=== PATIENT | female | born 1935 | race Caucasian/White ===

== ENCOUNTER 2018-09-29 15:19 | Inpatient (IN) | payer MEDICARE, OTHER ==
[~2018-09-29] VITALS: Ht 157.5 cm; Wt 53.6 kg
[2018-09-29] MEDS ORDERED: ASPIRIN 81 MG TABLET CHEW PO ONE (16:00)
[2018-09-29] MEDS ORDERED: NITROGLYCERIN SINGLE TAB 0.4 MG SL PRN (16:00)
[2018-09-29] MEDS ORDERED: NITROGLYCERIN SINGLE TAB 0.4 MG SL ONE (16:02)
[2018-09-29 16:04] LABS: BASOPHILS # (AUTO) 0.08 x10^3/uL (0-0.1); BASOPHILS % (AUTO) 1 % (0-1); EOSINOPHILS # (AUTO) 0.02 x10^3/uL (0-0.4); EOSINOPHILS % (AUTO) 0 % (1-7); LYMPHOCYTES # (AUTO) 0.96 x10^3/uL (1-3.4); LYMPHOCYTES % (AUTO) 7 % (22-44); MD NO; MEAN CORPUSCULAR HEMOGLOBIN 32.2 pg (27.0-34.8); MEAN CORPUSCULAR HGB CONC 33.7 g/dL (32.4-35.8); MEAN CORPUSCULAR VOLUME 95.7 fL (80-100); MONOCYTES # (AUTO) 0.96 x10^3/uL (0.2-0.8); MONOCYTES % (AUTO) 7 % (2-9); NEUTROPHILS # (AUTO) 12.05 x10^3/uL (1.8-6.8); NEUTROPHILS % (AUTO) 86 % (42-75); PLATELET COUNT 186 x10^3/uL (130-400); RED BLOOD COUNT 4.73 x10^6/uL (3.82-5.3); RED CELL DISTRIBUTION WIDTH 12.4 % (9.6-15.2)
[2018-09-29 16:15] LABS: ALANINE AMINOTRANSFERASE 30 U/L (12-78); ALBUMIN 4.5 g/dL (3.4-5.0); ANION GAP 9 mmol/L (5-15); CALCIUM 9.5 mg/dL (8.5-10.1); CHLORIDE 101 mmol/L (98-107)
[2018-09-29 16:20] LABS: ALKALINE PHOSPHATASE 57 U/L (45-117); BILIRUBIN,TOTAL 1.8 mg/dL (0.2-1.0); CREATININE 1.17 mg/dL (0.55-1.02); TOTAL PROTEIN 7.7 g/dL (6.4-8.2)
[2018-09-29] MEDS ORDERED: MORPHINE SULFATE 4 MG/ML, 1ML ONE (16:26)
[2018-09-29 16:27] LABS: INTERNATIONAL NORMALIZED RATIO 0.95 (0.93-1.1); PROTHROMBIN TIME 10.1 Seconds (9.6-11.5)
[2018-09-29] MEDS ORDERED: morphine SULFATE 10 MG/ML, 1ML IVPush ONE (16:30)
[2018-09-29] MEDS ORDERED: FENTANYL PF 100 MCG/2ML ONE (16:51)
[2018-09-29] MEDS ORDERED: MIDAZOLAM 1 MG/ML, 5ML ONE (16:51)
[2018-09-29] MEDS ORDERED: BIVALIRUDIN 250 MG ONE (16:52)
[2018-09-29] MEDS ORDERED: TICAGRELOR 90 MG TABLET ONE (16:52)
[2018-09-29] MEDS ORDERED: HEPARIN 1,000 UNITS/ML, 10ML ONE (16:52)
[2018-09-29] MEDS ORDERED: VERAPAMIL 2.5 MG/ML, 2ML ONE (16:52)
[2018-09-29] MEDS ORDERED: SODIUM CHLORIDE 0.9% 1,000 ML IV SCH (16:59)
[2018-09-29] MEDS ORDERED: ACETAMINOPHEN 325 MG TABLET PO PRN ×2 (17:00→22:30)
[2018-09-29] MEDS ORDERED: NITROGLYCERIN 0.4 MG/SPRAY SL PRN ×2 (17:00→22:30)
[2018-09-29] MEDS ORDERED: HEPARIN 5,000 UNITS/ML, 1ML IV ONE (17:00)
[2018-09-29] MEDS ORDERED: POLYETHYLENE GLYCOL 17 GM PACKET PO PRN ×2 (17:00→22:30)
[2018-09-29] MEDS ORDERED: DOCUSATE 100 MG CAPSULE PO PRN ×2 (17:00→22:30)
[2018-09-29] MEDS ORDERED: ONDANSETRON ODT 4 MG PO PRN ×2 (17:00→22:30)
[2018-09-29] MEDS ORDERED: HEPARIN 5,000 UNITS/ML, 1ML IV PRN (17:00)
[2018-09-29] MEDS ORDERED: NITROGLYCERIN 0.4 MG BOTTLE (25 TABS) SL PRN ×2 (17:00→22:30)
[2018-09-29] MEDS ORDERED: hydrALAzine 20 MG/ML, 1ML IVPush PRN ×2 (17:00→22:30)
[2018-09-29] MEDS ORDERED: HEPARIN 25,000 UNITS/500ML PMX 500 ML IV PRN (17:00)
[2018-09-29] MEDS ORDERED: ONDANSETRON 2MG/ML, 2ML IVPush PRN ×2 (17:00→22:30)
[2018-09-29] MEDS ORDERED: MORPHINE SULFATE 4 MG/ML, 1ML IVPush PRN ×2 (17:00→22:30)
[2018-09-29 19:20] VITALS: BP 105/69
[2018-09-29] MEDS ORDERED: METOPROLOL TARTRATE 25 MG TABLET ONE (20:31)
[2018-09-29] MEDS ORDERED: ATORVASTATIN 20 MG TABLET ONE (20:32)
[2018-09-29] MEDS ORDERED: METOPROLOL TARTRATE 25 MG TABLET PO SCH (21:00)
[2018-09-29] MEDS ORDERED: ATORVASTATIN 20 MG TABLET PO SCH (21:00)
[2018-09-29 21:38] VITALS: BP 98/62
[2018-09-30 00:08] VITALS: BP 103/61
[2018-09-30 05:11] LABS: MEAN CORPUSCULAR HEMOGLOBIN 32.9 pg (27.0-34.8); MEAN CORPUSCULAR HGB CONC 34.3 g/dL (32.4-35.8); MEAN CORPUSCULAR VOLUME 95.9 fL (80-100); MEAN PLATELET VOLUME 8.7 fL (7.4-10.4); PLATELET COUNT 132 x10^3/uL (130-400); RED BLOOD COUNT 3.73 x10^6/uL (3.82-5.3); RED CELL DISTRIBUTION WIDTH 12.5 % (9.6-15.2)
[2018-09-30] MEDS: ASPIRIN 81 MG TABLET EC PO SCH (05:27)
[2018-09-30 05:30] LABS: BASOPHILS # (AUTO) 0.02 x10^3/uL (0-0.1); BASOPHILS % (AUTO) 0 % (0-1); EOSINOPHILS # (AUTO) 0.04 x10^3/uL (0-0.4); EOSINOPHILS % (AUTO) 0 % (1-7); LYMPHOCYTES # (AUTO) 1.13 x10^3/uL (1-3.4); LYMPHOCYTES % (AUTO) 13 % (22-44); MD SCAN; MONOCYTES # (AUTO) 1.52 x10^3/uL (0.2-0.8); MONOCYTES % (AUTO) 18 % (2-9); NEUTROPHILS # (AUTO) 5.98 x10^3/uL (1.8-6.8); NEUTROPHILS % (AUTO) 69 % (42-75)
[2018-09-30 05:34] LABS: CHLORIDE 105 mmol/L (98-107)
[2018-09-30 05:53] LABS: ALANINE AMINOTRANSFERASE 18 U/L (12-78); ALKALINE PHOSPHATASE 37 U/L (45-117); ANION GAP 8 mmol/L (5-15); BILIRUBIN,TOTAL 2.2 mg/dL (0.2-1.0); CALCIUM 8.1 mg/dL (8.5-10.1); CHOLESTEROL, TOTAL 151 mg/dL (140-239); CREATININE 0.91 mg/dL (0.55-1.02); HDL CHOL % 50 % (28-40); HDL CHOLESTEROL (DIRECT) 76 mg/dL (40-60); LDL CHOLESTEROL,CALCULATED 63 mg/dL (54-169); LDL/HDL RATIO 0.8 (0.5-3.0); TOTAL PROTEIN 5.7 g/dL (6.4-8.2); TRIGLYCERIDES 59 mg/dL (50-200); VLDL CHOLESTEROL 12 mg/dL (0-25)
[2018-09-30] MEDS ORDERED: ASPIRIN 81 MG TABLET EC PO SCH (06:00)
[2018-09-30 07:15] VITALS: BP 90/54
[2018-09-30] MEDS ORDERED: METOPROLOL TARTRATE 25 MG TABLET PO SCH (09:00)
[2018-09-30] MEDS: CLOPIDOGREL 75 MG TABLET PO SCH (10:21)
[2018-09-30 10:25] VITALS: BP 129/71
[2018-09-30] MEDS: METOPROLOL SUCCINATE 25 MG TAB.ER.24H PO SCH (10:26)
[2018-09-30] MEDS ORDERED: ENOXAPARIN 40 MG/0.4 ML SQ SCH (12:30)
[2018-09-30 14:28] VITALS: BP 106/67
[2018-09-30] MEDS ORDERED: SODIUM CHLORIDE 0.9% 1,000 ML IV SCH (16:59)
[2018-09-30 18:31] VITALS: BP 111/68
[2018-09-30] MEDS ORDERED: ATORVASTATIN 20 MG TABLET PO SCH (21:00)
[2018-10-01 00:23] VITALS: BP 105/68
[2018-10-01] MEDS: ASPIRIN 81 MG TABLET EC PO SCH (05:12)
[2018-10-01] MEDS: CLOPIDOGREL 75 MG TABLET PO SCH (08:08)
[2018-10-01] MEDS: METOPROLOL SUCCINATE 25 MG TAB.ER.24H PO SCH (08:09)
[2018-10-01 08:10] VITALS: BP 137/73
[2018-10-01] MEDS ORDERED: ASPI81TA45 PO (12:17)
[2018-10-01] MEDS ORDERED: ATOR20TA37 PO (12:17)
[2018-10-01] MEDS ORDERED: CLOP75TA PO (12:17)
[2018-10-01] MEDS ORDERED: METO25TA91 PO (12:17)
== END 2018-10-01 16:05 | disposition home or self-care (01) | DRG 280 ==
LOC: ED 16:49 → EDIP 16:50 → ED 17:37 → 5SO 17:57 → ED 17:57 → 5SO 18:26 → ED 18:43 → 5SO 18:45 → DCLOUNGE 10-01 15:50
PROVIDERS: ADMIT Internal Medicine; ATTEND Internal Medicine
PROC: 4A023N7 Measurement of Cardiac Sampling and Pressure, Left Heart, Percutaneous Approach (ICD-10-PCS; principal; 2018-09-29)
PROC: B2111ZZ Fluoroscopy of Multiple Coronary Arteries using Low Osmolar Contrast (ICD-10-PCS; 2018-09-29)
PROC: B2151ZZ Fluoroscopy of Left Heart using Low Osmolar Contrast (ICD-10-PCS; 2018-09-29)
DX: I21.4 Non-ST elevation (NSTEMI) myocardial infarction (principal); R65.11 Systemic inflammatory response syndrome (SIRS) of non-infectious origin with acute organ dysfunction; I51.81 Takotsubo syndrome; J44.9 Chronic obstructive pulmonary disease, unspecified; D72.829 Elevated white blood cell count, unspecified; I34.0 Nonrheumatic mitral (valve) insufficiency; K44.9 Diaphragmatic hernia without obstruction or gangrene; N28.9 Disorder of kidney and ureter, unspecified; Z77.090 Contact with and (suspected) exposure to asbestos; I25.10 Atherosclerotic heart disease of native coronary artery without angina pectoris; I95.9 Hypotension, unspecified; R79.89 Other specified abnormal findings of blood chemistry; Z79.02 Long term (current) use of antithrombotics/antiplatelets; Z87.891 Personal history of nicotine dependence; Z88.8 Allergy status to other drugs, medicaments and biological substances; Z88.5 Allergy status to narcotic agent; Z79.899 Other long term (current) drug therapy
CPT/HCPCS: 36415; 71045; 80053; 80061; 84484; 85025; 85379; 85610; 85730; 93005; 93458; 96374; 99156; 99291; C1769; C1894; C8929; G0378; J0583; J1644; J1650; J2250; J3010; Q9957; J2270; J7030; Q9967

== ENCOUNTER 2019-01-07 15:43 | Emergency (ER) | payer MEDICARE, OTHER ==
[~2019-01-07] VITALS: Ht 157.5 cm; Wt 48.9 kg
[~2019-01-07 15:43] MED LIST: ASPI81TA45 PO; ATOR20TA37 PO; CLOP75TA PO; METO25TA91 PO
[2019-01-07] MEDS ORDERED: LIDOCAINE-MPF 1%, 5ML INFIL ONE (16:00)
[2019-01-07 16:20] VITALS: BP 176/111
== END 2019-01-07 17:07 | disposition home or self-care (01) ==
LOC: ED 17:01
DX: R05 Cough (principal)
CPT/HCPCS: 71046; 93005; 99283

== ENCOUNTER → 2019-09-02 | Outpatient (CLI) | payer SELFPAY ==
[2019-09-02 12:47] LABS: ALBUMIN 4.2 g/dL (3.4-5.0); BILIRUBIN, DIRECT 0.4 mg/dL (0.1-0.2)
[2019-09-02 12:48] LABS: BILIRUBIN,INDIRECT 1.3 mg/dL (0.0-2.0); BILIRUBIN,TOTAL 1.7 mg/dL (0.2-1.0); CHOL/HDL RATIO 1.7; LDL/HDL RATIO 0.6 (0.5-3.0); TOTAL PROTEIN 7.3 g/dL (6.4-8.2)
== END | disposition home or self-care (01) ==
LOC: CFH 09:37
PROVIDERS: ATTEND Registered Nurse
DX: E78.2 Mixed hyperlipidemia (principal); I10 Essential (primary) hypertension; I21.4 Non-ST elevation (NSTEMI) myocardial infarction; I25.2 Old myocardial infarction; J44.9 Chronic obstructive pulmonary disease, unspecified; R06.02 Shortness of breath; Z82.3 Family history of stroke; Z82.49 Family history of ischemic heart disease and other diseases of the circulatory system; Z88.8 Allergy status to other drugs, medicaments and biological substances
CPT/HCPCS: 36415; 80061; 80076

== ENCOUNTER 2021-05-15 09:49 | Emergency (ER) | payer OTHER ==
[~2021-05-15] VITALS: Ht 157.5 cm; Wt 51.8 kg
--- NOTE | 2021-05-15 09:59 | NUR ---
PT BIB EMS FOR GLF. PT C/O LEFT SHOULDER PAIN. PT DENIES LOC OR DIZZINESS CAUSING FALL. PT DENIES FEELING ANY OTHER INJURIES. PAIN 4/10. POSITIVE CMS TO EXT. PAIN TO SHOULDER WITH MOVEMENT.
[2021-05-15] MEDS ORDERED: ONDANSETRON ODT 4 MG ONE (10:49)
[2021-05-15] MEDS ORDERED: HYDROcodone/APAP 5/325 TABLET ONE (10:50)
[2021-05-15] MEDS ORDERED: ONDANSETRON ODT 4 MG PO ONE (11:30)
[2021-05-15] MEDS ORDERED: HYDROcodone/APAP 5/325 TABLET PO ONE (11:30)
--- NOTE | 2021-05-15 12:05 | NUR ---
PT REC'VD DISCHARGE INSTRUCTIONS AND EDUCATION. PT HAD NO FURTHER QUESTIONS. PT PLACED IN WHEELCHAIR. PT TAKEN TO DC AREA WITH FRIEND.
[2021-05-15 12:08] VITALS: BP 142/77
== END 2021-05-15 12:17 | disposition home or self-care (01) ==
LOC: ED 11:35
DX: S42.215A Unspecified nondisplaced fracture of surgical neck of left humerus, initial encounter for closed fracture (principal); S42.255A Nondisplaced fracture of greater tuberosity of left humerus, initial encounter for closed fracture; Z88.5 Allergy status to narcotic agent; W01.0XXA Fall on same level from slipping, tripping and stumbling without subsequent striking against object, initial encounter; Y93.89 Activity, other specified; Y92.89 Other specified places as the place of occurrence of the external cause; Y99.8 Other external cause status
CPT/HCPCS: 73030; 99283; Q0162